=== PATIENT | male | born 1980 | race Caucasian/White ===

== ENCOUNTER 2016-05-22 07:53 | Emergency (ER) | payer BC ==
[2016-05-22 08:10] VITALS: BP 130/86
--- NOTE | 2016-05-30 00:42 | UC ---
Throat Pain/Nasal Royal HPI - HPI Summary HPI Summary: pt pw/ st, ear ache, sinus congestion/pain/lindsey x4 days - History of Current Complaint Chief Complaint: UCRespiratory Stated Complaint: SORE THROAT,EARS,SINUS Time Seen by Provider: 05/22/16 08:09 Hx Obtained From: Patient Onset/Duration: Sudden Onset, Lasting Days - 4, Still Present Severity: Moderate Pain Intensity: 0 Pain Scale Used: 0-10 Numeric Cough: Nonproductive Associated Signs & Symptoms: Positive: Dysphagia, Sinus Discomfort, Nasal Discharge. Negative: Drooling, Wheezing, Hoarseness, Fever, Vomiting, Rash - Allergies/Home Medications Allergies/Adverse Reactions: Allergies Allergy/AdvReac Type Severity Reaction Status Date / Time Sulfamethoxazole Allergy Itching Verified 05/22/16 08:05 w/Trimethoprim [From Bactrim] Home Medications: Home Medications Dextromethorphan-Phenylephrine [Day Time Multi-Symptom Co] 2 cap PO ONCE PRN 06/06 [History Confirmed 05/22/16] PMH/Surg Hx/FS Hx/Imm Hx Previously Healthy: Yes - Surgical History Surgical History: None - Family History Known Family History: Negative: Cardiac Disease, Hypertension, Diabetes - Social History Alcohol Use: None Substance Use Type: None Smoking Status (MU): Former Smoker Have You Smoked in the Last Year: Yes When Did the Patient Quit Smoking/Using Tobacco: 2 weeks ago Review of Systems Constitutional: Negative Skin: Negative Eyes: Negative ENT: Sore Throat, Ear Ache, Nasal Discharge Respiratory: Cough Cardiovascular: Negative Gastrointestinal: Negative Genitourinary: Negative Motor: Negative Neurovascular: Negative Musculoskeletal: Negative Neurological: Negative Psychological: Negative All Other Systems Reviewed And Are Negative: Yes Physical Exam Triage Information Reviewed: Yes Appearance: Well-Appearing, No Pain Distress, Well-Nourished Vital Signs: Initial Vital Signs Temp 97 F 05/22/16 08:06 Pulse 73 05/22/16 08:06 Resp 18 05/22/16 08:06 BP 130/86 05/22/16 08:06 Pulse Ox 97 05/22/16 08:06 Vital Signs Reviewed: Yes Eyes: Positive: Conjunctiva Clear. Negative: Discharge ENT: Positive: Hearing grossly normal, Pharyngeal erythema, Nasal congestion, Nasal drainage, TMs normal, Other: - sinus tenderness. Negative: Tonsillar swelling Neck: Positive: Supple, Nontender Respiratory: Positive: Lungs clear, Normal breath sounds, No respiratory distress, No accessory muscle use Cardiovascular: Positive: RRR, No Murmur Musculoskeletal Exam: Normal Neurological: Positive: Alert, Muscle Tone Normal Psychological: Positive: Age Appropriate Behavior Skin Exam: Normal Throat Pain/Nasal Course/Dx - Differential Dx/Diagnosis Differential Diagnosis/HQI/PQRI: Otitis Media, Pharyngitis, Sinusitis, URI Provider Diagnoses: sinusitis Discharge - Discharge Plan Condition: Stable Disposition: HOME Prescriptions: Azithromycin TAB* [Zithromax TAB (Z-ALVIN) 250 mg #6 tabs] 0 mg PO .SEE INSTRUCTIONS #6 tab Patient Education Materials: Sinusitis (ED) Referrals: No Primary Care Phys,NOPCP [Primary Care Provider] - If Needed (WE RECCOMEND THAT YOU ESTABLISH WITH A PRIMARY CARE PROVIDER. IF YOU NEED HELP FINDING A PCP , YOU CAN CALL THE FOLLOWING NUMBER [phone].) Additional Instructions: TRY USING THE CHERYL POT IN THE MORNINGS DISCUSSED. YOU MUST ALWAYS USE CLEAN WATER. REMEMBER, POSTURE PLAYS AN IMPORTANT ROLE IN SINUS DRAINAGE. SO, DON'T SLOUCH, MOVE YOUR NECK AND BREATHE. ANTIBIOTICS ARE NOT CURRENTLY INDICATED FOR YOUR CONDITION. HOWEVER, IF YOUR SYMPTOMS PERSIST FOR 4-5 MORE DAYS, YOU CAN START THE FOLLOWING MEDICINE: AZITHROMYCIN ANYTIME YOU TAKE AN ANTIBIOTIC IT IS VERY IMPORTANT TO REPLENISH YOUR BODY'S SUPPLY OF "GOOD" BACTERIA. YOU CAN DO THIS BY EATING HIGH QUALITY CULTURED FOODS SUCH LOCAL YOGURT, SOUR KRAUT AND REY LEIF. YOU CAN ALSO TAKE A PROBIOTIC SUPPLEMENT.
== END 2016-05-22 08:56 | disposition home or self-care (01) ==
LOC: UCCORT 07:53
DX: J32.9 Chronic sinusitis, unspecified (principal); Z88.2 Allergy status to sulfonamides; Z87.891 Personal history of nicotine dependence
CPT/HCPCS: 99202; G0463

== ENCOUNTER 2017-01-03 14:16 | Emergency (ER) | payer BC, OTHER ==
[2017-01-03 15:16] VITALS: BP 125/72
--- NOTE | 2017-01-03 15:52 | UC ---
FLU HPI - HPI Summary HPI Summary: pt presents with c/o fever, chills, generalized malaise, cough, nasal congestion X 3-4 days. - History of Current Complaint Chief Complaint: UCRespiratory Stated Complaint: FEVER, CHILLS, CONGESTION Time Seen by Provider: 01/03/17 15:34 Hx Obtained From: Patient Onset/Duration: Sudden Onset, Lasting Days - 4 Severity Currently: Mild Severity Initially: Moderate Associated Signs & Symptoms: Positive: Fever, Myalgia, Nasal Congestion Related Hx: Possible Flu/Infectious Exposure - Risk Factors Influenza Risk Factors: Negative - Allergy/Home Medications Allergies/Adverse Reactions: Allergies Allergy/AdvReac Type Severity Reaction Status Date / Time Sulfamethoxazole Allergy Itching Verified 01/03/17 15:16 w/Trimethoprim [From Bactrim] PMH/Surg Hx/FS Hx/Imm Hx Previously Healthy: Yes - Surgical History Surgical History: None - Family History Known Family History: Negative: Cardiac Disease, Hypertension, Diabetes - Social History Occupation: Employed Full-time Lives: With Family Alcohol Use: None Substance Use Type: None Smoking Status (MU): Heavy Every Day Tobacco Smoker Have You Smoked in the Last Year: Yes When Did the Patient Quit Smoking/Using Tobacco: 2 weeks ago Review of Systems Constitutional: Fever, Chills, Fatigue Skin: Negative Eyes: Negative ENT: Other - nasal congestion Respiratory: Cough Cardiovascular: Negative Gastrointestinal: Negative Genitourinary: Negative Motor: Negative Neurovascular: Negative Musculoskeletal: Myalgia Neurological: Negative Psychological: Negative Is Patient Immunocompromised?: No All Other Systems Reviewed And Are Negative: Yes Physical Exam Triage Information Reviewed: Yes Appearance: Ill-Appearing Vital Signs: Initial Vital Signs Temp 100.2 F 01/03/17 15:14 Pulse 89 01/03/17 15:14 Resp 17 01/03/17 15:14 BP 125/72 01/03/17 15:14 Pulse Ox 98 01/03/17 15:14 Vital Signs Reviewed: Yes Eye Exam: Normal ENT Exam: Other ENT: Positive: Nasal congestion, TM bulging - bialteral Dental Exam: Normal Neck exam: Normal Respiratory Exam: Normal Cardiovascular Exam: Normal Musculoskeletal Exam: Normal Neurological Exam: Normal Psychological Exam: Normal Skin Exam: Normal Flu Course/Dx - Differential Dx/Diagnosis Differential Diagnosis/HQI/PQRI: Bronchitis, Influenza Provider Diagnoses: Bronchitis Discharge - Discharge Plan Condition: Stable Disposition: HOME Prescriptions: Azithromycin TAB* [Zithromax TAB (Z-ALVIN) 250 mg #6 tabs] 2 tab PO .TODAY, THEN 1 DAILY #1 alvin Patient Education Materials: Acute Bronchitis (ED) Referrals: [facility] [place] [facility] [Outside] - If Needed No Primary Care Phys,NOPCP [Primary Care Provider] - Additional Instructions: Please follow up with your PCP or return to clinic.
== END 2017-01-03 16:18 | disposition home or self-care (01) ==
LOC: UCCORT 14:16
DX: J40 Bronchitis, not specified as acute or chronic (principal); Z88.1 Allergy status to other antibiotic agents; Z88.2 Allergy status to sulfonamides
CPT/HCPCS: 87502; 99212; G0463